=== PATIENT | female | born 2000 | race Hispanic/Latino ===

== ENCOUNTER 2023-12-02 16:29 | Emergency (ER) | payer OTHER, SELFPAY ==
[2023-12-02] MEDS ORDERED: Ibuprofen 200 MG TAB ONE (17:06)
[2023-12-02] MEDS ORDERED: Acetaminophen 500 MG TAB ONE (17:06)
[2023-12-02 18:07] LABS: Influenza A by NAA Not Detected (NotDetected); Influenza B by NAA Not Detected (NotDetected); SARS-CoV-2 NAA Rapid Test Not Detected (NotDetected)
== END 2023-12-02 18:20 | disposition home or self-care (01) ==
LOC: CSHERS 16:29
DX: J02.9 Acute pharyngitis, unspecified (principal); F17.210 Nicotine dependence, cigarettes, uncomplicated; F17.290 Nicotine dependence, other tobacco product, uncomplicated
CPT/HCPCS: 87081; 87430; 99283